=== PATIENT | female | born 1990 | race Caucasian/White ===

== ENCOUNTER 2016-09-23 05:37 | Emergency (ER) | payer OTHER ==
[~2016-09-23] VITALS: Ht 165.1 cm; Wt 54.4 kg
--- NOTE | 2016-09-23 05:53 | NUR ---
at bedside for eval.
[2016-09-23 06:16] VITALS: BP 104/59
--- NOTE | 2016-09-23 06:16 | NUR ---
Patient discharged to home in stable conditon. Written and verbal after care instructions given. Patient verbalizes understanding of instructions. Patient left with stable gait.
== END 2016-09-23 06:17 | disposition home or self-care (01) ==
LOC: ER 05:39
DX: B35.1 Tinea unguium (principal); F10.20 Alcohol dependence, uncomplicated; F12.10 Cannabis abuse, uncomplicated; Z88.8 Allergy status to other drugs, medicaments and biological substances
CPT/HCPCS: A4663